=== PATIENT | female | born 1980 ===

== ENCOUNTER 2018-03-22 08:41 | Emergency (ER) | payer SELFPAY ==
[2018-03-22 08:50] VITALS: BMI 26.4
[2018-03-22] MEDS ORDERED: Sodium Chloride 0.9% 1,000 ML IV STA (09:16)
[2018-03-22] MEDS ORDERED: methylPREDNISolone 125 MG in Sodium Chloride 0.9% 50 ML IV STA (09:16)
[2018-03-22] MEDS ORDERED: DiphenhydrAMINE 50 mg/ml Inj IVP STA (09:16)
--- NOTE | 2018-03-22 09:19 | ED PDOC ---
HPI: General Adult Time Seen by Provider: 03/22/18 09:17 Chief Complaint (Nursing): Abnormal Skin Integrity Chief Complaint (Provider): RASH History Per: Patient (38 Y/O FEMALE HERE FOR EVALUATION OF PRURITIS/RASH NOTED. PATIENT STATES SHE HAS PRURITIS GENERALIZED SINCE SATURDAY. ONLY NEW MED IS SYNTHROID X 30 DAYS. NOTES ADDITIONAL RASH ON FACE ON GOING. DENIES ANY FEVERS/CHILLS. NO NEW FOODS.) Past Medical History Reviewed: Historical Data, Nursing Documentation, Vital Signs Vital Signs: Last Vital Signs Temp 97 F L 03/22/18 08:48 Pulse 81 03/22/18 08:48 Resp 20 03/22/18 08:48 BP 118/49 L 03/22/18 08:48 Pulse Ox 100 03/22/18 08:48 - Medical History PMH: Hyperthyroidism Denies: Chronic Kidney Disease - Family History Family History: States: No Known Family Hx - Home Medications Home Medications: Ambulatory Orders Medication Instructions Recorded DiphenhydrAMINE [Benadryl] 50 mg PO Q6 PRN #24 cap 03/22/18 Famotidine [Pepcid] 20 mg PO BID #10 tab 03/22/18 RX: Erythromycin 0.5% 0.5 gm TOP BID #1 tube 03/22/18 [Erythromycin] RX: Prednisone [Deltasone] 3 tab PO DAILY #12 tablet 03/22/18 - Allergies Allergies/Adverse Reactions: Allergies Allergy/AdvReac Type Severity Reaction Status Date / Time No Known Allergies Allergy Verified 03/22/18 08:53 Review of Systems ROS Statement: Except As Marked, All Systems Reviewed And Found Negative Physical Exam - Reviewed Nursing Documentation Reviewed: Yes Vital Signs Reviewed: Yes - Physical Exam Appears: Positive for: Well, Non-toxic, No Acute Distress Head Exam: Positive for: ATRAUMATIC, NORMAL INSPECTION, NORMOCEPHALIC Skin: Positive for: Normal Color, Warm, Rash (URTICARIA GENERALIZED BACK/TRUNK. PAPULAR LESIONS ALONG FACE WITH MILD ERYTHEMA.) Eye Exam: Positive for: EOMI, Normal appearance, PERRL ENT: Positive for: Normal ENT Inspection Neck: Positive for: Normal, Painless ROM Cardiovascular/Chest: Positive for: Regular Rate, Rhythm Respiratory: Positive for: CNT, Normal Breath Sounds Gastrointestinal/Abdominal: Positive for: Normal Exam, Soft Back: Positive for: Normal Inspection Extremity: Positive for: Normal ROM Neurologic/Psych: Positive for: Alert, Oriented - ECG O2 Sat by Pulse Oximetry: 100 - Progress ED Course And Treament: Solumedrol 125 mg iv x 1 dose pepcid 20 mg iv x 1 dose benadryl 50 mg iv x 1 dose NS 1 liter 500 ml per hour Patient re-examined. Much improved. Disposition - Clinical Impression Clinical Impression: Allergic reaction, Acne - Patient ED Disposition Is Patient to be Admitted: No - Disposition Referrals: Bryant Salinas MD [Staff Provider] - Disposition: Routine/Home Disposition Time: 10:24 Condition: FAIR Prescriptions: DiphenhydrAMINE [Benadryl] 50 mg PO Q6 PRN #24 cap PRN Reason: Itching / Pruritus RX: Erythromycin 0.5% [Erythromycin] 0.5 gm TOP BID #1 tube Famotidine [Pepcid] 20 mg PO BID #10 tab RX: Prednisone [Deltasone] 3 tab PO DAILY #12 tablet Instructions: Hives, Acne (ED) Forms: [facility] ED School/Work Excuse Print Language: UKRAINIAN
[2018-03-22] MEDS ORDERED: DiphenhydrAMINE 50 mg/ml Inj ONE (09:23)
[2018-03-22 12:35] VITALS: BP 105/62; PULSE 71; RESP 18; TEMP 98.2
[2018-03-23 13:46] VITALS: O2SAT 100
== END 2018-03-22 12:36 | disposition home or self-care (01) ==
LOC: H.ER 08:41
DX: T78.40XA Allergy, unspecified, initial encounter (principal); L70.9 Acne, unspecified; E05.90 Thyrotoxicosis, unspecified without thyrotoxic crisis or storm
CPT/HCPCS: 81025; 96361; 96374; 96375; 99283; J1200; J2930; J7030